=== PATIENT | male | born 1935 | race Caucasian/White ===

== ENCOUNTER → 2016-05-22 | Outpatient (CLI) | payer MEDICARE ==
[~2016-05-22] MED LIST: ASPIRIN BUFFER325 M2 PO; ASPIRIN EC81 M1 PO; ATENOLOL25 MG PO; BENIFIBER; CALCIUM 500 +1 EAC2 PO; CALCIUM 600 +1 EA12 PO; CLOPIDOGREL75 MG PO; ELIQUIS5 MG PO; FLOMAX0.4 M1 PO; HYDROCODON-ACE1 EAC7 PO; HYDROCODON-ACE1 EAC9 PO; IMMODIUM1 MG/5 M1; KETOCONAZOLE120 ML TOP; LACTAID9000 UNIT; LEVOTHYROXINE75 MC1 PO; LEVOTHYROXINE75 MCG PO; MULTI VITAMIN1 EACH; NITROFURANTOIN100 M3 PO; OMEPRAZOLE20 M2 PO; OMNICEF300 M1 PO; PERSANTINE50 MG PO; PHENERGAN12.5 MG; PLAVIX300 MG PO; VITAMIN B-121000 MCG PO; VITAMIN B12-FO1 EACH PO
--- NOTE | ~2016-05-22 | CR58 ---
[facility] A Service of [facility] & [facility] RADIOLOGY TEXT RESULTS PATIENT: MARTHA HARRISON LOCATION: [facility] : 33 UNIT #: [id number] AGE: [address]: Joey Benavides MD SEX: M ORDER DR: [id number] [facility] [address] [place], [place] [address] [id number] O MR#: [id number] Acc #: [id number] NAME: MARTHA HARRISON : 1935 SEX: M STUDY DATE/TIME: 05/22/2016 13:05 UNIT: [facility] ROOM: STUDY DESCRIPTION: CR Cervical Spine 2 or 3 Views Attending Physician: Joey Benavides M.D. Ordering Physician: Joey Benavides M.D. Primary Care Physician: Benjamin Tierney M.D. MEDICAL IMAGING REPORT This report is preliminary unless electronic signature is present EXAM Cervical spine, total of 5 views. DATE OF EXAM 05/22/2016 HISTORY Positive bone scan. History of prostate cancer. FINDINGS AP, lateral, open-mouth, swimmer's and angled odontoid views are submitted. Cervical alignment is normal. There is osteopenia. The patient has multilevel facet disease. There is marginal spur formation at C5-6 and C6-7. No lytic or blastic lesions are seen. CONCLUSION Advanced cervical disc disease and facet disease. No lytic or blastic lesions identified. Findings on bone scan most likely reflect degenerative changes in the spine, rather than a neoplastic process. Dictated by... Venancio Finn M.D. THIS IS AN ELECTRONICALLY VERIFIED REPORT Venancio Finn M.D. at 05/26/2016 2:45 PM IRASEMA/arya TD: 05/22/2016 19:23 JOB #: [id number] MEDICAL IMAGING REPORT Page 1 of 1 COPY
--- NOTE | ~2016-05-22 | CT55 ---
[facility] A Service of [facility] RADIOLOGY TEXT RESULTS PATIENT: MARTHA HARRISON LOCATION: [facility] : 33 UNIT #: [id number] AGE: [address]: Joey Benavides MD SEX: M ORDER DR: [id number] [facility] [address] [place], [place] [address] [id number] O MR#: [id number] Acc #: [id number] NAME: MARTHA HARRISON : 1935 SEX: M STUDY DATE/TIME: 05/22/2016 9:21 UNIT: [facility] ROOM: STUDY DESCRIPTION: CT Chest W Con Attending Physician: Joey Benavides M.D. Ordering Physician: Joey Benavides M.D. Primary Care Physician: Benjamin Tierney M.D. MEDICAL IMAGING REPORT This report is preliminary unless electronic signature is present EXAM CT of the chest with contrast INDICATION 81-year-old male with history of prostate cancer. Observation for metastatic disease. TECHNIQUE CT scan of the chest was performed following the administration of IV contrast. Coronal, sagittal reformatted images were obtained. This CT examination was performed with one or more of the following radiation dose reduction techniques: automatic exposure control, adjustment of mA and/or kV according to patient size, and iterative reconstruction. COMPARISON CT angiogram of the abdomen and pelvis from 03/05/[address] of the chest from 11/13/2011. FINDINGS There is some minimal emphysema. There is no evidence of suspicious pulmonary nodule. Stable aortic aneurysm. No pleural effusion or lymphadenopathy. Coronary artery calcification. Limited imaging of the upper abdomen demonstrates a partially imaged aortic stent graft. A biliary stent is in place. There are renal cysts. The bone windows are unremarkable. IMPRESSION No evidence of metastatic disease to the chest. Dictated by... Enio Borden M.D. [facility] A Service [facility] RADIOLOGY TEXT RESULTS PATIENT: MARTHA HARRISON LOCATION: [facility] : 33 UNIT #: [id number] AGE: [address]: Joey Benavides MD SEX: M ORDER DR: THIS IS AN ELECTRONICALLY VERIFIED REPORT Enio Borden M.D. at 05/23/2016 9:02 AM Noe TD: 05/22/2016 12:04 JOB #: [id number] MEDICAL IMAGING REPORT Page 1 of 1 COPY
--- NOTE | ~2016-05-22 | CR100 ---
[facility] A Service of [facility] & [facility] RADIOLOGY TEXT RESULTS PATIENT: MARTHA HARRISON LOCATION: [facility] : 33 UNIT #: [id number] AGE: [address]: Joey Benavides MD SEX: M ORDER DR: [id number] [facility] [address] [place], [place] [address] [id number] O MR#: [id number] Acc #: [id number] NAME: MARTHA HARRISON : 1935 SEX: M STUDY DATE/TIME: 05/22/2016 13:09 UNIT: [facility] ROOM: STUDY DESCRIPTION: CR Facial Bones < 3 Views Attending Physician: Joey Benavides M.D. Ordering Physician: Joey Benavides M.D. Primary Care Physician: Benjamin Tierney M.D. MEDICAL IMAGING REPORT This report is preliminary unless electronic signature is present EXAM Facial bone series total of 5 views HISTORY Positive bone scan FINDINGS A total of 5 views of the facial bones are obtained. Bony elements appear intact. No fractures, lytic or blastic lesions are seen. CONCLUSION Negative facial bone series. No radiographic correlates are identified when compared with the recent bone scan. Dictated by... Venancio Finn M.D. THIS IS AN ELECTRONICALLY VERIFIED REPORT Venancio Finn M.D. at 05/26/2016 2:45 PM TACHOK/grant TD: 05/22/2016 19:06 JOB #: [id number] MEDICAL IMAGING REPORT Page 1 of 1 COPY
--- NOTE | ~2016-05-22 | NM8 ---
[facility] A Service of [facility] RADIOLOGY TEXT RESULTS PATIENT: MARTHA HARRISON LOCATION: [facility] : 33 UNIT #: [id number] AGE: [address]: Joey Benavides MD SEX: M ORDER DR: [id number] [facility] [address] [place], [place] [address] [id number] O MR#: [id number] Acc #: [id number] NAME: MARTHA HARRISON : 1935 SEX: M STUDY DATE/TIME: 05/22/2016 11:39 UNIT: [facility] ROOM: STUDY DESCRIPTION: MA Bone or Joint Whole Body Attending Physician: Joey Benavides M.D. Ordering Physician: Joey Benavides M.D. Primary Care Physician: Benjamin Tierney M.D. MEDICAL IMAGING REPORT This report is preliminary unless electronic signature is present EXAM Whole-body bone scan. HISTORY 81-year-old male history of prostate cancer with increasing PSA. Patient diagnosed 4-5 years ago. Right above-knee amputation 2012. COMPARISON Whole-body bone scan 05/11/2015, CT chest 05/22/2016 and cervical spine 05/22/2016. FINDINGS Whole-body and selected spot images were performed of the axial and appendicular skeleton following the intravenous administration of 27.9 mCi technetium 99m MDP. Examination demonstrates degenerative uptake within the cervical spine. On the posterior acquisition there is marked activity near the cervical thoracic junction. I suspect this is artifactually increased due to overlapping of the osseous structures due to the patient's severe kyphosis. This was also demonstrated on the patient's recent chest CT. No abnormal uptake is identified to suggest osseous metastatic disease. There is mild increased uptake of the distal stump of the patient's right above-knee amputation but not significantly changed from prior studies. Bilateral renal activity noted. Normal bladder activity. Apparent urinary contamination noted over the groin region. IMPRESSION No bone scan findings to suggest osseous metastatic disease. Increased uptake near the cervical thoracic junction seen on the posterior whole-body acquisitions is felt to be artifactually increase due to overlapping of osseous structures due to patient's underlying kyphosis. Dictated by... Leatha Borden M.D. [facility] A Service of [facility] RADIOLOGY TEXT RESULTS PATIENT: MARTHA HARRISON LOCATION: [facility] #: [id number] : 33 UNIT #: [id number] AGE: [address]: Joey Benavides MD SEX: M ORDER DR: THIS IS AN ELECTRONICALLY VERIFIED REPORT Leatha Borden M.D. at 05/23/2016 2:39 PM Maya TD: 05/23/2016 06:55 JOB #: [id number] MEDICAL IMAGING REPORT Page 1 of 1 COPY
[2016-05-22 09:35] LABS: POC - CREATININE 0.89 mg/dL (0.64-1.27); POC - GFR >60.0 mL/min (>60)
== END | disposition home or self-care (01) ==
LOC: CNUC 08:10
PROVIDERS: Urology
DX: C61 Malignant neoplasm of prostate (principal); M50.80 Other cervical disc disorders, unspecified cervical region
CPT/HCPCS: 70140; 71260; 72040; 78306; 82565; A9503; Q9967

== ENCOUNTER 2016-06-25 21:48 | Observation (INO) | payer MEDICARE ==
--- NOTE | ~2016-06-25 | CO ---
Unit #: [id number] #: [id number] Patient: MARTHA HARRISON [id number] [facility]. [place], [place] [address] [id number] I MR#: [id number] NAME: MARTHA HARRISON ROOM: 241 Age: 81 Sex: M Admission Date: 06/26/2016 : 1935 Attending Physician: James Staley M.D. Primary Care Physician: Benjamin Tierney M.D. Consultation Date: 06/26/2016 CONSULTATION REPORT REASON FOR CONSULTATION Medical management. HISTORY OF PRESENT ILLNESS The patient is an 81-year-old male with a past medical history of coronary artery disease, diverticular disease, hypothyroidism, irritable bowel, infrarenal abdominal aortic aneurysm, aortic arch aneurysm, peripheral arterial disease, dementia, common bile duct stone, diabetes, prostate cancer, who was admitted by Dr. Staley for urinary retention. The patient was seen at [facility] yesterday evening. He had apparently voided earlier in the day but then was unable to void. In the afternoon he was complaining of abdominal pain. A Bernal catheter was unable to be placed. He was admitted by urology. He underwent cystoscopy this morning with placement of Bernal catheter. Hips was consulted for medical management. At the time of my evaluation, the patient has no complaints. He has a Bernal catheter in place. He denies any fever. He has had occasional, nonproductive cough. He denies any chest pain. No vomiting. He does have intermittent loose stool, but is not a new problem. PAST MEDICAL HISTORY 1. Admission to [facility] 11/23/2014 through 11/29/2014 for acute kidney injury secondary to bladder outlet obstruction. He also had symptomatic choledocholithiasis and underwent ERCP. With stone extraction and biliary stent placement. 2. Diabetes, diet controlled. 3. Coronary artery disease. 4. Infrarenal abdominal aortic aneurysm followed by Dr. Johnson. 5. Aortic arch aneurysm, again followed by Dr. Johnson. 6. Peripheral arterial disease, status post bilateral iliac stent placement and right ubaur-tfd-wzqg amputation. 7. Vascular dementia. 8. Diverticular disease. 9. Hypothyroidism. 10. Hypertension. 11. Hyperlipidemia. 12. Irritable bowel syndrome. 13. Sick sinus syndrome. 14. Atrial fibrillation not on chronic anticoagulation. 15. Per cardiology consultation note, the patient had a 2D echo 11/14/2011 at [facility] that showed an ejection fraction of 40% to 45% with impaired left ventricular relaxation. PAST SURGICAL HISTORY Unit #: [id number] #: [id number] Patient: MARTHA HARRISON 1. Bilateral iliac stents. 2. Right ynium-mhz-uvan amputation. 3. Colon surgery for diverticulitis. 4. Appendectomy. 5. Transurethral resection of prostate. 6. Appendectomy. SOCIAL HISTORY The patient is a former smoker. There is no alcohol use. He typically uses a wheelchair. FAMILY HISTORY Notable for his mother living to the age of 97. Dad in his 60s of a myocardial infarction. ALLERGIES No known allergies. HOME MEDICATIONS Plavix 75 mg daily; levothyroxine 75 mcg daily. REVIEW OF SYSTEMS A complete review of systems is negative except as indicated in the HPI. The patient has been losing weight ever since he had his lower extremity amputation. Also per Reqlut review, the patient underwent ERCP with stent exchange on 03/16/2015. Per Dr. Becker's note, he was supposed to follow up in 8-10 weeks. It does not appear that the patient has followed up and the stent is still in place. PHYSICAL EXAMINATION VITAL SIGNS: Temperature is 98.2, pulse 100, respirations 20, blood pressure 120/74. GENERAL: The patient is a very pleasant, male who is awake and alert in no acute distress. HEENT: Head is atraumatic. Mucous membranes are moist. NECK: Supple. Trachea is midline. CARDIOVASCULAR: Regular rate and rhythm. LUNGS: Clear to auscultation bilaterally with no increased work of breathing. ABDOMEN: Soft, nontender with bowel sounds present in all four quadrants. EXTREMITIES: The patient has a prior right kzsiy-fhg-dgtd amputation. There is no pedal edema involving the left lower extremity. NEUROLOGIC: The patient is awake and alert. He follows commands. PSYCH: Mood and affect are normal. The patient is cooperative. SKIN: Skin of examined areas is warm and dry. DIAGNOSTIC TESTS Complete blood count is essentially normal. Urinalysis notable for 3+ leukocyte esterase, 2+ protein, 3+ blood with enumerable red blood cells, enumerable white blood cells, 1+ bacteria. Basic metabolic panel notable for bicarb of 21, glucose 132, INR is 1.1. ASSESSMENT The patient is an 81-year-old male with: 1. Urinary retention. The patient was admitted by urology. A Bernal catheter is currently in place. 2. Urinary infection. The patient is on Rocephin. 3. Hypertension. Unit #: [id number] #: [id number] Patient: MARTHA HARRISON 4. Hyperlipidemia. 5. Coronary artery disease. 6. Diverticular disease. 7. Hypothyroidism. 8. Irritable bowel syndrome. 9. Infrarenal abdominal aortic aneurysm and aortic arch aneurysm, followed by Dr. Johnson. 10. Peripheral arterial disease, status post lower extremity stenting and amputation. 11. Vascular dementia. 12. History of common bile duct stone. The patient underwent stent exchange in 03/2015. I spoke with Dr. Becker via telephone regarding the patient being lost to follow up. He will see him as an outpatient and provide him with an appointment while he is in the hospital. 13. Diabetes, not on any medication, currently diet controlled. 14. History of prostate cancer. 15. Weight loss. 16. Former smoker. PLANS 1. Regarding diabetes, I have ordered a hemoglobin A1c, as well as low dose sliding scale insulin with Accu-Cheks. 2. Regarding hypothyroidism. I have ordered a TSH. 3. Regarding history of common bile duct stone and stent placement and I have spoken with Dr. Becker. Thank you very much for the consultation. We will follow the patient along closely with you. Dictated by... Tamica Andino M.D. BRAULIO/anita TD: 06/26/2016 12:48 JOB #: [id number] CONSULTATION REPORT Page 1 of 1 X Tamica Andino MD X CONSULTATION REPORT
--- NOTE | ~2016-06-25 | DS ---
Unit #: [id number] #: [id number] Patient: MARTHA HARRISON [id number] [address] [address] [id number] I MR#: [id number] NAME: MARTHA HARRISON ROOM: 241 Age: 81 Sex: M Admission Date: 06/26/2016 : 1935 Discharge Date: 06/27/2016 Attending Physician: James Staley M.D. Primary Care Physician: Benjamin Tierney M.D. DISCHARGE SUMMARY DIAGNOSES 1. Urinary retention. 2. Urethral stricture. HISTORY OF PRESENT ILLNESS Mr. Harrison is an 81-year-old gentleman, normally sees our partner, Dr. Parnell. He was diagnosed with prostate cancer. Dr. Flaherty placed a Bernal catheter under cystoscopy after attempts at placing the catheter were unsuccessful. Patient also sees Dr. Benavides for his advanced prostate cancer. PAST MEDICAL HISTORY 1. Diabetes. 2. Prostate cancer. 3. Peripheral vascular disease. 4. Hypertension. 5. Coronary artery disease. 6. Vascular stents. 7. Lower extremity amputation. 8. Pacemaker. 9. TUNA procedure. 10. TURP. 11. Appendectomy. 12. Colostomy reversal. MEDICATIONS 1. Synthroid. 2. Plavix. ALLERGIES No known drug allergies. FAMILY HISTORY Negative for prostate cancer. SOCIAL HISTORY He quit smoking in 2011. REVIEW OF SYSTEMS Negative for 10 points, except for a little bit of irritation with the catheter. PHYSICAL EXAMINATION VITAL SIGNS: He is afebrile. Vital signs stable. Unit #: [id number] #: [id number] Patient: MARTHA HARRISON ABDOMEN: Soft with no rebound, no guarding. Bernal catheter in place. GENITALIA: Normal external genitalia. Urine is clear. ASSESSMENT AND PLAN Urinary retention, urethral stricture: It required dilation with S dilators. The patient will be discharged home with a catheter. Return to see Dr. Parnell in one to two weeks. Dictated by... Kevin Correia M.D. JEYSON/vera TD: 06/27/2016 10:45 JOB #: [id number] DISCHARGE SUMMARY Page 1 of 1 X Kevin Correia MD DISCHARGE SUMMARY
--- NOTE | ~2016-06-25 | OR ---
Unit #: [id number] #: [id number] Patient: MARTHA HARRISON [id number] [address] [place], [place] [address] [id number] Angelo MR#: [id number] NAME: MARTHA HARRISON ROOM: 241 Date of Procedure: 06/26/2016 Admission Date: 06/26/2016 Surgeon: Dangelo Flaherty M.D. : 1935 Attending Physician: James Staley M.D. Primary Care Physician: Benjamin Tierney M.D. OPERATIVE REPORT PREOPERATIVE DIAGNOSIS Urinary retention, inability to place Bernal catheter. POSTOPERATIVE DIAGNOSIS Urinary retention, inability to place Bernal catheter. PROCEDURE PERFORMED Flexible cystourethroscopy with urethral dilation and catheter placement over a guidewire. ANESTHESIA Local. INDICATIONS FOR PROCEDURE This is an 81-year-old man, developed sudden acute urinary retention. He has a history of TUR of prostate, and after the fact he was noted to have a recurrent prostate cancer, status post TUR, he has not been successfully catheterized despite several attempts including my own. DESCRIPTION OF PROCEDURE The patient was taken to the cystoscopy suite in his bed and without transfer. Prep and drape were performed. Xylocaine jelly was instilled and a flexible cystoscope easily placed down a normal anterior urethra encountering a severe narrowing, which appeared just proximal to the verumontanum or in its vicinity. A flexible cystoscope would not pass through this. A Sensor guidewire was passed through the cystoscope and I used S dilators up through size 20-Cambodian. After this, I passed the cystoscope one more time over the guidewire into the bladder. The bladder was examined other than white debris in its floor and 1+ trabeculation appeared normal. Retroflexion viewing was not very informative. Pullback through the adequate channel showed a persistent focal area of narrowing. An 18-Cambodian Councill catheter was placed over the guidewire and the patient was much relief following the procedure. I suspect repeat TUR may be appropriate still for this patient despite increased risk of incontinence. Likely best that he return with catheter to his primary urologist to discuss further management. Dictated by... Dangelo Flaherty M.D. Unit #: [id number] #: [id number] Patient: MARTHA HARRISON/modl TD: 06/26/2016 23:43 JOB #: [id number] Dangelo Parnell M.D. OPERATIVE REPORT Page 1 of 1 X Dangelo Flaherty MD PROCEDURE OPERATIVE NOTE
--- NOTE | ~2016-06-25 | HP ---
Unit #: [id number] #: [id number] Patient: MARTHA HARRISON [id number] [address] [place], [place] [address] [id number] I MR#: [id number] NAME: MARTHA HARRISON ROOM: 241 Age: 81 Sex: M Admission Date: 06/26/2016 : 1935 Attending Physician: James Staley M.D. Primary Care Physician: Benjamin Tierney M.D. HISTORY AND PHYSICAL CHIEF COMPLAINT Urinary retention. HISTORY OF PRESENT ILLNESS This 81-year-old man was admitted through the emergency department after presenting with a 12-hour complaint of inability to urinate. His history is somewhat limited due to a stroke, but he presented to [facility] in October 2014 with urinary retention and had a catheter placed for bilateral hydronephrosis and a distended bladder. He had had a TUNA procedure in the past by my partner, Dr. Dangelo Parnell, and office records show that he subsequently underwent a TUR of prostate in 2015. The pathology revealed extensive [place] 5 plus 4 equals 9 prostate cancer. Initial bone and CT scans were negative. He proceeded to androgen deprivation therapy and is being followed by our mutual partner, Dr. Joey Benavides, in this regard. Repeat bone and CT scans from May 22, 2016, were also negative, but his PSA on May 07, 2016, was 1.61 with a doubling time of under three months. Patient denies absolutely any difficulty with voiding complaints prior to yesterday. He was moderately uncomfortable from bladder distention this morning. PAST MEDICAL HISTORY 1. Diabetes. 2. Hypertension. 3. Peripheral vascular disease. 4. Coronary artery disease. PAST SURGICAL HISTORY 1. Multiple vascular stents. 2. Right lower extremity amputation. 3. Pacemaker. 4. Transurethral needle ablation procedure. 5. Transurethral resection of the prostate. 6. Appendectomy. 7. Colostomy reversal. ADMISSION MEDICATIONS 1. Plavix. 2. Levothyroxine. ALLERGIES None known. Unit #: [id number] #: [id number] Patient: MARTHA HARRISON FAMILY HISTORY Father heart disease. Negative for prostate cancer. SOCIAL HISTORY Quit smoking in 2011. REVIEW OF SYSTEMS No decreased appetite or bone pain. No bowel complaints. Positive only for bladder pain and distention on admission. PHYSICAL EXAMINATION GENERAL: Patient is pleasant, alert, and in moderate distress. HEENT: Unremarkable. LUNGS: Clear. CARDIAC: Rate and rhythm regular. ABDOMEN: Inferiorly distended and tender. Phallus normal, circumcised. Testes atrophic, descended. Digital not performed. EXTREMITIES: Right above knee amputation. IMPRESSION 1. Urinary retention. 2. History of recurrent prostate cancer and transurethral resection of the prostate albeit not known at the time of this admission. TREATMENT I attempted to place an 18 Coude catheter initially at bedside as retention was the only reason patient was transferred in. Three other healthcare professionals had been unable to place a catheter. I also was not successful. PLAN Will remain n.p.o. and schedule flexible cystoscopy under local anesthesia with dilation as needed and catheter placement with the option to proceed to general anesthesia if absolutely indicated. Dictated by Bev Cerrato/blayne TD: 06/26/2016 20:06 JOB #: [id number] HISTORY AND PHYSICAL Page 1 of 1 X Dangelo Flaherty MD X HISTORY AND PHYSICAL
--- NOTE | ~2016-06-25 | A ---
[facility] DATE: 06/26/16 Patient: MARTHA HARRISON Physician: DARIN Address: [address] [facility] Room/Bed: [address] [place] [address], Zip: [place] [address] Admit Date: 06/26/16 Date of : [birth year] Height: 5 10 Weight: 170 77.11 NUTRITIONAL ASSESSMENT: REASON: 3 NUTRITION RISK PT RE: WEIGHT LOSS PT IS 81 Y.O. MALE ADMITTED FOR URINARY RETENTION PMH: PAD S/P (R) AKA IN 2012, T2DM, HTN, HLD, IBS, PACEMAKER Anthropometrics: 5'10", WT: 120# (BEDSIDE) (55 KG), BMI: 17.2, 72%IBW -169# WEIGHT IN [facility] AT ADMIT? PT NOTES CURRENT WEIGHT IS LESS THAN ~120#? Labs: GLU: 132 Meds: LEVOTHROID I/O & Bowel function: -/2 Skin Integrity: DRY SKIN NOTED ALL OVER BODY Estimated Nutrition Needs: INCREASED NUTRIENT NEEDS 2' PT UNDERWEIGHT, CURRENT CONDITION, WEIGHT LOSS NOTED Assessment: CHART REVIEWED AND EVENTS NOTED. PT SEEN FOR WEIGHT LOSS. PT GROGGY AT TIME OF VISIT REPORTING FAIR/GOOD PO INTAKE AND APPETITE PRIOR TO ADMIT, NOTING EATING 3 MEALS DAILY AT HOME. PT DENIES ANY CHEWING OR SWALLOWING DIFFICULTIES. PT REPORTS UBW IS ~175-180#, NOTING LOSING WEIGHT SINCE 2012 2' (R) AKA. THIS RD ENCOURAGED ADEQUATE KCAL AND PROTEIN INTAKE + SUPPLEMENT INTAKE, PT AGREED TO GLUCERNA SHAKES BID (PT REFUSED ALL OTHER SUPPLEMENTS OFFERED HERE AT [facility]). PT REPORTED NO DIET QUESTIONS AT THIS TIME. RD TO FOLLOW. Dx: UNINTENTIONAL WEIGHT LOSS R/T PMH AEB BMI OF 17.2, 72%IBW, WEIGHT LOSS NOTED SINCE 2012. Intervention: 1. REGULAR DIET 2. GLUCERNA SHAKES BID Monitoring, Evaluation and Goals: 1. ORAL INTAKE; CONSUME MEALS AND SUPPS W/NO C/O N/V/D (PO>50%) 2. WEIGHTS; PROMOTE GRADUAL WEIGHT GAIN; PREVENT FURTHER WEIGHT LOSS MONITOR: -PO INTAKE/APPETITE -WEIGHTS [facility] DATE: 06/26/16 Patient: MARTHA HARRISON Physician: DARIN Address: [address] [place] [address] Room/Bed: [address] [place] [address], Zip: [place] [address] Admit Date: 06/26/16 Date of : [birth year] Height: 5 10 Weight: 170 77.11 -SUPPLEMENT INTAKE Recommendations: 1. ORDER JAZZ GLUCERNA SHAKES BID W/MEALS 2. APPRECIATE FAMILY AND STAFF TO ENCOURAGE PO AND SUPPLEMENT INTAKE 3. CONSIDER ADDING MVI W/MINERAL DAILY TO PT'S CURRENT MEDICATION REGIMEN 2' ADVANCED AGE, PMH RD WILL F/U PER PROTOCOL PT IS MILDLY COMPROMISED Respectfully, KEMI PETERS MS, RD, LD [employer] [facility] Nutrition[facility] cc: client file
[~2016-06-25 21:48] MED LIST changes: -ASPIRIN BUFFER325 M2 PO; -CALCIUM 500 +1 EAC2 PO; -CALCIUM 600 +1 EA12 PO; -CLOPIDOGREL75 MG PO; -ELIQUIS5 MG PO; -HYDROCODON-ACE1 EAC7 PO; -HYDROCODON-ACE1 EAC9 PO; -KETOCONAZOLE120 ML TOP; -LEVOTHYROXINE75 MCG PO; -OMNICEF300 M1 PO; -VITAMIN B12-FO1 EACH PO
[2016-06-26 00:45] LABS: BASOPHIL% 0.4 % (0-2.5); EOSINOPHIL% 0.3 % (0.0-7.0); HEMATOCRIT 44.1 % (38.0-50.0); HEMOGLOBIN 14.2 gm/dL (13.0-16.0); LYMPHOCYTE# 0.8 X10e3 (1.0-3.5); LYMPHOCYTE% 7.9 % (17.0-45.0); MEAN CELL VOLUME 86.9 FL (83-96); MEAN CORPUSCULAR HGB CONC 32.2 g/dL (30-36); MEAN PLATELET VOLUME 8.4 FL (6.5-11.5); MONOCYTE# 0.6 X10e3 (0-1.0); MONOCYTE% 6.1 % (3.0-12.0); NEUTROPHIL# 8.3 X10e3 (1.5-7.1); NEUTROPHIL% 85.3 % (40-75); PLATELET COUNT 247 X10e3 (140-420); RED BLOOD COUNT 5.07 X10e (3.90-5.60); RED CELL DISTRIBUTION WIDTH 15.4 % (11.0-15.5); WHITE BLOOD COUNT 9.8 X10e3 (4.0-10.5)
[2016-06-26 00:46] LABS: URINE APPEARANCE SL CLOUDY; URINE BLOOD 3+ (NEG); URINE COLOR RED; URINE GLUCOSE NEG (NORM); URINE KETONE NEG (NEG); URINE LEUKOCYTE ESTERASE 3+ (NEG); URINE NITRATE NEG (NEG); URINE PROTEIN 2+ (NEG); URINE UROBILINOGEN 0.2 MG/DL (NORM)
[2016-06-26 00:47] LABS: DIFF IND NO
[2016-06-26 00:50] LABS: INR 1.1; PROTHROMBIN TIME (PATIENT) 12.2 SECONDS (9.5-12.4)
[2016-06-26 00:53] LABS: MICRO INDICATED? YES; URINE BILIRUBIN NEG (NEG); URINE SOURCE CATH
[2016-06-26 00:55] LABS: URINE RBC INNUM /[HPF] (0-2)
[2016-06-26 00:56] LABS: CULTURE INDICATED? YES; URINE BACTERIA 1+ (NEG); URINE MUCUS PRESENT; URINE SQUAMOUS EPITHELIAL CELL OCCAS /[HPF]; URINE TRANSITIONAL EPI CELLS FEW /[HPF]; URINE WBC INNUM /[HPF] (0-5)
[2016-06-26 00:58] LABS: BUN/CREATININE RATIO 26.25; CALCIUM SERUM 8.7 mg/dL (8.4-10.2); CREATININE SERUM 0.8 mg/dL (0.6-1.4); GLOM FILT RATE Estimated 82.6 mL/min (>60); PARTIAL THROMBOPLASTIN TIME 29.9 SECONDS (25.6-38.1); POTASSIUM 4.2 mmol/L (3.5-5.1)
[2016-06-26] MEDS ORDERED: CLOPIDOGREL75 MG PO (05:45)
[2016-06-26] MEDS ORDERED: LEVOTHYROXINE75 MCG PO (05:46)
[2016-06-27 05:36] LABS: HEMATOCRIT 35.5 % (38.0-50.0); MEAN CELL VOLUME 86.8 FL (83-96); MEAN CORPUSCULAR HEMOGLOBIN 27.9 PG (28-34); MEAN CORPUSCULAR HGB CONC 32.1 g/dL (30-36); MEAN PLATELET VOLUME 8.3 FL (6.5-11.5); RED BLOOD COUNT 4.09 X10e (3.90-5.60); RED CELL DISTRIBUTION WIDTH 15.5 % (11.0-15.5); WHITE BLOOD COUNT 6.1 X10e3 (4.0-10.5)
[2016-06-27 05:40] LABS: HEMOGLOBIN 11.4 gm/dL (13.0-16.0)
[2016-06-27 07:11] LABS: ALBUMIN SERUM 2.9 g/dL (3.5-5.0); BILIRUBIN,TOTAL 0.7 mg/dL (0.2-2.0); BUN/CREATININE RATIO 26.25; CALCIUM SERUM 7.9 mg/dL (8.4-10.2); CREATININE SERUM 0.8 mg/dL (0.6-1.4); GLOM FILT RATE Estimated 82.6 mL/min (>60); PROTEIN TOTAL SERUM 5.3 g/dL (6.0-8.3)
[2016-06-27] MEDS ORDERED: OMNICEF300 M1 PO (11:08)
[2016-07-10] MEDS ORDERED: CALCIUM 500 +1 EAC2 PO (13:57)
== END 2016-06-27 12:04 | disposition home or self-care (01) ==
LOC: SED 21:48 → SEDOF 06-26 01:34 → C2A 06-26 05:31
PROVIDERS: Emergency Medicine; Urology
DX: R33.9 Retention of urine, unspecified (principal); N35.9 Urethral stricture, unspecified; Z85.46 Personal history of malignant neoplasm of prostate; E11.9 Type 2 diabetes mellitus without complications; I73.9 Peripheral vascular disease, unspecified; I10 Essential (primary) hypertension; I25.10 Atherosclerotic heart disease of native coronary artery without angina pectoris; Z89.611 Acquired absence of right leg above knee; Z82.49 Family history of ischemic heart disease and other diseases of the circulatory system; Z87.891 Personal history of nicotine dependence; Z95.0 Presence of cardiac pacemaker; Z79.02 Long term (current) use of antithrombotics/antiplatelets; Z95.820 Peripheral vascular angioplasty status with implants and grafts
CPT/HCPCS: 80048; 80053; 81003; 82947; 83036; 84443; 85025; 85027; 85610; 85730; 87086; 87088; 87186; 96374; 96375; 96376; 99285; G0378; J0696; J2270; J2405

== ENCOUNTER → 2016-07-11 | Day surgery (SDC) | payer MEDICARE ==
[~2016-07-11] MED LIST changes: +ASPIRIN BUFFER325 M2 PO; +CALCIUM 500 +1 EAC2 PO; +CALCIUM 600 +1 EA12 PO; +CLOPIDOGREL75 MG PO; +ELIQUIS5 MG PO; +HYDROCODON-ACE1 EAC7 PO; +HYDROCODON-ACE1 EAC9 PO; +KETOCONAZOLE120 ML TOP; +LEVOTHYROXINE75 MCG PO; +OMNICEF300 M1 PO; +VITAMIN B12-FO1 EACH PO
--- NOTE | ~2016-07-11 | OR ---
Unit #: [id number] #: [id number] Patient: MARTHA HARRISON [id number] [address] [place], [place] [address] [id number] O MR#: [id number] NAME: MARTHA HARRISON ROOM: Date of Procedure: 07/11/2016 Admission Date: 07/11/2016 Surgeon: Moy Becker M.D. : 1935 Attending Physician: Moy Becker M.D. Referring Physician: Moy Becker M.D. Primary Care Physician: Benjamin Tierney M.D. OPERATIVE REPORT PRIMARY CARE PHYSICIAN Benjamin Tierney M.D. PREOPERATIVE DIAGNOSES The patient has common bile duct stones and indwelling biliary stent, which unfortunately has been there for more than a year as the patient never seemingly followed up for stent removal. He is therefore come for clearance of common bile duct and stent removal. PROCEDURES PERFORMED 1. Endoscopic retrograde cholangiopancreatography and stent removal. 2. Endoscopic retrograde cholangiopancreatography and stone extraction. POSTOPERATIVE DIAGNOSES After removal of the biliary stent, cholangiogram was obtained. The patient was noted to have multiple common bile duct stones. The stomach was U shaped with the large hiatus hernia and maintaining a consistent position was quite difficult. The patient also had continued taking Plavix and as a result, it was not possible to extend sphincterotomy and use lithotripsy. The procedure was therefore be repeated in few weeks after cessation of Plavix. SEDATION USED MAC. DESCRIPTION OF PROCEDURE Following detailed explanation of potential risks and complications of an ERCP, namely perforation, bleeding, and complications related to sedation and pancreatitis, the patient was brought to GI lab and laid in the left semiprone position. A lateral viewing duodenoscope was passed through the oral cavity into the esophagus and advanced into the stomach. Pylorus was intubated in the usual fashion. The scope was advanced in deep descending duodenum. Upon shortening the scope, major ampulla and papillary area was visualized en face. Previously placed biliary stent was in place and appeared somewhat mummified. The stent was removed using polypectomy snare and delivered outside. Through the previous sphincterotomy site, a guidewire was advanced using a sphincterotome. Contrast cholangiogram was obtained. The patient was noted to have some multiple filling defects in the distal common bile duct. At least 2 distinct stones were seen. The sphincterotomy size seemed appropriate; however, there was limitation in terms of extension, also there is impossible due to lithotripter. Therefore after, balloon sweep the duct multiple times. It was felt that Unit #: [id number] #: [id number] Patient: MARTHA HARRISON it would be best to postpone procedure and repeated with cessation of Plavix for 5 days and repeat the procedure near future with lithotripter to capture and remove the stones. The scope and accessories were then withdrawn. The patient returned to the recovery area. He tolerated the procedure without any postprocedure complications. Dictated by... Bev Sánchez/erika TD: 07/12/2016 05:45 JOB #: [id number] OPERATIVE REPORT Page 1 of 1 X Moy Becker MD X PROCEDURE OPERATIVE NOTE
--- NOTE | ~2016-07-11 | EKG ---
PATIENT: MARTHA HARRISON UNIT #: [id number] Ventricular Rate: 102 BPM Atrial Rate: 102 BPM P-R Interval: 210 ms QRS Duration: 172 ms Q-T Interval: 454 ms QTC Calculation(Bezet): 591 ms Calculated R [place]: -80 degrees Calculated T [place]: 90 degrees Diagnosis Line: AV dual-paced rhythm with prolonged AV conduction Diagnosis Line: Abnormal ECG Diagnosis Line: When compared with ECG of 27-NOV-2014 06:46, Diagnosis Line: Previous ECG has undetermined rhythm, needs review Diagnosis Line: Confirmed by IMAN LAMB MD ([id number]) on 07/11/2016 Diagnosis Line: 8:12:39 PM INTERPRETING MD: ADONIS LUND
== END | disposition home or self-care (01) ==
LOC: COPS 14:04
DX: Z46.59 Encounter for fitting and adjustment of other gastrointestinal appliance and device (principal); K80.50 Calculus of bile duct without cholangitis or cholecystitis without obstruction; K44.9 Diaphragmatic hernia without obstruction or gangrene; E11.9 Type 2 diabetes mellitus without complications; E03.9 Hypothyroidism, unspecified; M19.90 Unspecified osteoarthritis, unspecified site; N39.0 Urinary tract infection, site not specified; K21.9 Gastro-esophageal reflux disease without esophagitis; Z86.73 Personal history of transient ischemic attack (TIA), and cerebral infarction without residual deficits; Z85.46 Personal history of malignant neoplasm of prostate; Z87.442 Personal history of urinary calculi; Z87.19 Personal history of other diseases of the digestive system; Z90.49 Acquired absence of other specified parts of digestive tract; Z95.0 Presence of cardiac pacemaker; Z79.02 Long term (current) use of antithrombotics/antiplatelets; Z79.82 Long term (current) use of aspirin; Z79.2 Long term (current) use of antibiotics; Z79.899 Other long term (current) drug therapy
CPT/HCPCS: 74330; 82947; 93005; J1610

== ENCOUNTER → 2016-07-18 | Outpatient (CLI) | payer MEDICARE ==
--- NOTE | ~2016-07-18 | EKG ---
PATIENT: MARTHA HARRISON UNIT #: [id number] Ventricular Rate: 96 BPM Atrial Rate: 96 BPM P-R Interval: 88 ms QRS Duration: 178 ms Q-T Interval: 434 ms QTC Calculation(Bezet): 548 ms Calculated R [place]: -80 degrees Calculated T [place]: 92 degrees Diagnosis Line: AV sequential or dual chamber electronic pacemaker Diagnosis Line: When compared with ECG of 11-JUL-2016 18:59, Diagnosis Line: Vent. rate has decreased BY 6 BPM Diagnosis Line: Confirmed by GEORGE SAN MD ([id number]) on Diagnosis Line: 07/23/2016 8:50:04 AM INTERPRETING MD: EMNA LUND
[2016-07-18 12:53] LABS: BASOPHIL# 0.1 X10e3 (0-0.3); BASOPHIL% 0.9 % (0-2.5); EOSINOPHIL# 0.2 X10e3 (0-0.7); EOSINOPHIL% 3.3 % (0.0-7.0); HEMATOCRIT 41.2 % (38.0-50.0); HEMOGLOBIN 13.4 gm/dL (13.0-16.0); LYMPHOCYTE# 1.3 X10e3 (1.0-3.5); LYMPHOCYTE% 21.4 % (17.0-45.0); MEAN CELL VOLUME 86.4 FL (83-96); MEAN CORPUSCULAR HEMOGLOBIN 28.2 PG (28-34); MEAN CORPUSCULAR HGB CONC 32.6 g/dL (30-36); MONOCYTE# 0.5 X10e3 (0-1.0); MONOCYTE% 9.1 % (3.0-12.0); NEUTROPHIL# 3.9 X10e3 (1.5-7.1); NEUTROPHIL% 65.3 % (40-75); PLATELET COUNT 227 X10e3 (140-420); RED BLOOD COUNT 4.77 X10e (3.90-5.60); RED CELL DISTRIBUTION WIDTH 15.5 % (11.0-15.5); WHITE BLOOD COUNT 5.9 X10e3 (4.0-10.5)
[2016-07-18 12:56] LABS: DIFF IND NO
[2016-07-18 13:22] LABS: BUN/CREATININE RATIO 18.75; CALCIUM SERUM 8.5 mg/dL (8.4-10.2); CREATININE SERUM 0.8 mg/dL (0.6-1.4); GLOM FILT RATE Estimated 82.6 mL/min (>60); POTASSIUM 4.3 mmol/L (3.5-5.1)
== END | disposition home or self-care (01) ==
LOC: SEKG 12:19
PROVIDERS: Chiropractor
DX: N40.1 Benign prostatic hyperplasia with lower urinary tract symptoms (principal); R33.9 Retention of urine, unspecified
CPT/HCPCS: 36415; 80048; 85025

== ENCOUNTER → 2016-09-03 | Outpatient (CLI) | payer MEDICARE ==
[2016-09-03 11:01] LABS: CREATININE SERUM 0.7 mg/dL (0.6-1.4); GLOM FILT RATE Estimated 87.3 mL/min (>60)
== END | disposition home or self-care (01) ==
LOC: SLAB 10:24
PROVIDERS: Surgery Vascular Surgery
DX: Z48.812 Encounter for surgical aftercare following surgery on the circulatory system (principal); Z95.828 Presence of other vascular implants and grafts
CPT/HCPCS: 36415; 82565; 84520

== ENCOUNTER → 2016-09-09 | Outpatient (CLI) | payer MEDICARE ==
--- NOTE | ~2016-09-09 | CT14 ---
[facility] A Service of [facility] RADIOLOGY TEXT RESULTS PATIENT: SUMMER HARRISON JR [facility] : 33 UNIT #: [id number] AGE: [address]: Jeancarlos Johnson MD SEX: M ORDER DR: [id number] [facility] [address] [place], [place] [address] [id number] O MR#: [id number] [facility] #: [id number] NAME: SUMMER HARRISON JR : 1935 SEX: M STUDY DATE/TIME: 09/09/2016 12:42 UNIT: [facility] ROOM: STUDY DESCRIPTION: CT Angio Abdomen and Pelvis Attending Physician: Jeancarlos Johnson M.D. Referring Physician: Jeancarlos Johnson M.D. Ordering Physician: Jeancarlos Johnson M.D. Primary Care Physician: Benjamin Tierney M.D. MEDICAL IMAGING REPORT This report is preliminary unless electronic signature is present EXAM CT angiogram of the abdomen and pelvis. INDICATION Prior aortic aneurysm. Status post EVAR. Routine follow up. TECHNIQUE CT angiogram abdomen and pelvis was performed before and after the administration of IV contrast using multiphase a stent graft protocol. Coronal, sagittal, and 3-D reformatted images were obtained. This CT exam was performed with one or more of the following radiation dose reduction techniques: automatic exposure control, adjustment of mA and/or kV according to patient size, and iterative reconstruction. COMPARISON Comparison is made with 03/05/2016. FINDINGS CT ANGIOGRAM: The patient has had a prior EVAR. The stent graft is patent. There is no evidence for endoleak. Aneurysm sac size is stable measuring roughly 4.7 cm. Stable appearance of the visceral arteries. There is stable mild fusiform dilatation of both common femoral arteries. CT OF THE ABDOMEN: Emphysematous changes in the lung bases. There is some high-attenuation material within the common bile duct, likely representing common bile duct stones. There is a presumed stone in the distal common bile duct measuring about 9-10 mm. There is a presumed stone in the mid common bile duct measuring about 8-9 mm and some layering stones in the proximal common bile duct on image 41. Previously noted common bile duct stent is no longer present. The spleen is unremarkable. The gallbladder is unremarkable. There are multiple renal cysts. The adrenal glands and pancreas are unremarkable. [facility]. [facility] A Service of [facility] RADIOLOGY TEXT RESULTS PATIENT: SUMMER HARRISON JR LOCATION: [facility] : 33 UNIT #: [id number] AGE: [address]: Jeancarlos Johnson MD SEX: M ORDER DR: PELVIS: There is nodular enhancement located at the base of the urinary bladder. Patient has had a prostatectomy and has a history of prostate cancer. There are scattered diverticula within the colon. There is no free fluid. Bone windows demonstrate multiple areas of sclerosis in the pelvis and lumbar spine. These are new compared with the prior study and are most suggestive of sclerotic osseous metastatic disease from prostate cancer. IMPRESSION 1. Abnormal exam. The patient has developed multiple sclerotic lesions within the pelvis and lower lumbar spine, most consistent with metastases and most likely from the patient's known history of prostate cancer. I would suggest correlation with PSA levels and follow up with the patient's oncologist/urologist. 2. There is abnormal nodular enhancement in the base of the urinary bladder. This may reflect bladder cancer or possibly presumed prostate cancer metastases. However, the patient has had a prostatectomy. I would recommend a urology consultation for a cystoscopy. 3. There is no evidence for endoleak. The aneurysm sac size is stable. 4. Multiple presumed stones within the common bile duct as described. Dictated by... Enio Borden M.D. THIS IS AN ELECTRONICALLY VERIFIED REPORT Enio Borden M.D. at 09/11/2016 12:25 PM JAMIE/alisha TD: 09/10/2016 09:50 JOB #: [id number] MEDICAL IMAGING REPORT Page 1 of 1 COPY
== END | disposition home or self-care (01) ==
LOC: CCAT 12:08
DX: I71.4 Abdominal aortic aneurysm, without rupture (principal); M89.9 Disorder of bone, unspecified; N32.89 Other specified disorders of bladder; R93.41 Abnormal radiologic findings on diagnostic imaging of renal pelvis, ureter, or bladder; Z90.79 Acquired absence of other genital organ(s); Z95.828 Presence of other vascular implants and grafts
CPT/HCPCS: 74174; Q9967

== ENCOUNTER 2016-09-20 23:01 | Inpatient (IN) | payer MEDICARE ==
--- NOTE | ~2016-09-20 | DS ---
Unit #: [id number] #: [id number] Patient: SUMMER HARRISON JR [id number] [address] [address] [id number] I MR#: [id number] NAME: SUMMER HARRISON JR ROOM: 218 Age: 81 Sex: M Admission Date: 09/21/2016 : 1935 Discharge Date: 09/23/2016 Attending Physician: Shania Sparks M.D. Primary Care Physician: Benjamin Tierney M.D. DISCHARGE SUMMARY PRIMARY CARE PHYSICIAN Benjamin Tierney M.D. PRINCIPAL DIAGNOSES 1. Acute on chronic low back pain secondary to metastatic prostate cancer. 2. Right upper lobe pulmonary embolism. 3. Right superficial femoral vein deep vein thrombosis. 4. Constipation acute on chronic. 5. Peripheral arterial disease. 6. Coronary artery disease. 7. Diabetes mellitus type 2. 8. Hypertension. 9. Hypothyroidism. 10. Questionable bladder mass. 11. Moderate protein malnutrition. 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 PROCEDURES 1. Chest x-ray on 09/21/2016 with enlargement of the heart. No other acute findings. 2. CT angiogram of the chest on 09/21/2016 with a single right upper lobe pulmonary embolism. Extensive atherosclerotic disease with stable dilatation of thoracic aorta noted. On prior study, there was penetrating ulcer in the descending aorta not noted on current study. Emphysema without any acute findings noted. Coronary artery disease. Scattered sclerotic lesions in the skeleton concerning for metastatic lesions. 3. CT of abdomen and pelvis with contrast on 09/21/2016 with abnormal circumferential wall thickening of the lower rectum just above the anus. This was proximal to a large volume of stool. Status post prostatectomy. Abnormal nodule enhancement in the urinary bladder is noted. Stable aortic aneurysm. Extensive atherosclerotic disease noted. Enhancement of gallbladder wall noted with mild thickening. Widespread osseous metastatic disease noted. 4. Bilateral extremity venous Doppler revealing chronic appearing thrombus in the right mid thigh superficial femoral vein. Left lower extremity normal. 5. Bone scan which was abnormal revealing widely disseminated bone metastases, greatest in the skull, ribs, and femur. CLINICAL HISTORY AND HOSPITAL COURSE Mr. Harrison is a very nice 81-year-old male, who presents to the Unit #: [id number] #: [id number] Patient: SUMMER HARRISON JR emergency department with acute onset of back pain. Workup in the emergency department, probable metastatic lesions from the patient's known prostate cancer. The patient was subsequently admitted. Urology was consulted. Review of records indicates the patient's PSA per Urology notes was 1.65 in 04/2016, however, PSA here was elevated at greater than 65. The patient underwent bone scan revealing widespread metastatic lesions which are responsible for patient's acute low back pain. He has been maintained on Petoskey here and the pain is controlled. I have discussed this case with Dr. Correia who saw the patient today and the plan is for the patient to be discharged home to be seen next week by Dr. Parnell in the office with some adjustment in his medications from Eligard to one of the newer agents. I will note the patient is well aware of the diagnosis as his daughter and his daughter is currently debating whether hospice would be appropriate and I think this would be better discussed with Dr. Parnell in the office to which both the patient and daughter are agreeable. During workup in the emergency department, the patient underwent CT scan with PE protocol revealing a right upper lobe PE. He was maintained on therapeutic Lovenox here. Venous Doppler also revealed DVT of the right lower extremity. I have discussed treatment options with the patient's and his daughter and at this point, we are going to check cost of Eliquis and if affordable, we will change him from Lovenox to Eliquis. I am concerned about Coumadin therapy given his variable oral intake. I suspect the patient's DVT and PE are secondary to underlying malignancy. The patient was also significantly constipated upon presentation, but has had bowel movements and feels better. GI was initially consulted but I think given his underlying diagnoses, no further workup would provide much benefit and at this time, I am going to cancel this. The patient's other chronic condition remained stable. He can be discharged home this afternoon assuming Eliquis is affordable and follow up with Dr. Parnell next week. DISCHARGE CONDITION Stable. DISCHARGE STATUS Discharged to home. DISCHARGE MEDICATIONS Eliquis 5 mg tablets 2 tablets p.o. b.i.d. for 7 days and one tablet p.o. daily after that, a total of 3 months prescription given. Petoskey 5/325 one tablet p.o. q.4 hours p.r.n. for pain number given 35, omeprazole 20 mg daily, calcium 600+ D two tablets daily, levothyroxine 75 mcg p.o. daily, vitamin B12/folic acid 1000 mcg p.o. daily. Please note, I am going to discontinue Plavix given high risk of bleeding in combination with Eliquis and place the patient on aspirin 325 mg p.o. daily in regard to his peripheral arterial disease. DISCHARGE INSTRUCTIONS The patient instructed to follow a constant carb diet if he can so tolerate. He can continue Accu-Cheks as he was doing home previously but they were stable here. He can increase activity as tolerated. Unit #: [id number] #: [id number] Patient: SUMMER HARRISON JR FOLLOWUP The patient will follow up with Dr. Parnell next week and discuss further options regarding treatment of his prostate cancer, but as noted above the patient and particularly his daughter also interested in discussing hospice whether Dr. Hussein feels this is appropriate. My personal opinion, the patient is appropriate, he is agreeable. Time spent on discharge 43 minutes. Dictated by... Shania Sparks M.D. RUBÉN/erika TD: 09/25/2016 06:45 JOB #: [id number] DISCHARGE SUMMARY Page 1 of 1 X Shania Sparks MD X DISCHARGE SUMMARY
--- NOTE | ~2016-09-20 | NM8 ---
[facility] A Service of [facility] RADIOLOGY TEXT RESULTS PATIENT: SUMMER HARRISON JR LOCATION: A 218- : 33 UNIT #: [id number] AGE: [address]: Shania Sparks MD SEX: M ORDER DR: [id number] [place] [id number] [facility]. [place], [place] [address] [id number] I MR#: [id number] Acc #: [id number] NAME: SUMMER HARRISON JR : 1935 SEX: M STUDY DATE/TIME: 09/22/2016 12:38 UNIT: [facility] ROOM: 218 STUDY DESCRIPTION: NM Bone or Joint Whole Body Attending Physician: Shania Sparks M.D. Ordering Physician: Dangelo Flaherty M.D. Primary Care Physician: Benjamin Tierney M.D. MEDICAL IMAGING REPORT This report is preliminary unless electronic signature is present EXAM Whole-body bone scan HISTORY 81-year-old male with elevated PSA complains of low back pain for 4 days. History of prostate cancer. COMPARISON Whole-body bone scan 05/22/2016 FINDINGS Whole-body and selected spot images were performed of the axial appendicular skeleton following the intravenous administration of 31.4 mCi technetium 99m MDP. 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 There are multiple foci of increased uptake within the axial and appendicular skeleton consistent with widely disseminated skeletal metastases. This is most prominent within the right proximal femur, left proximal femur, left acetabulum, skull and ribs bilaterally. There is increased uptake posteriorly within the spine at the cervical thoracic junction which may also indicate metastatic disease. Faint bilateral renal activity and bladder activity noted. Increased uptake in the lower cervical spine most likely degenerative in nature though metastatic disease not excluded. IMPRESSION Abnormal whole-body bone scan demonstrating multiple foci of increased uptake within the axial and appendicular skeleton compatible with widely disseminated skeletal metastases. This is most prominent within the calvarium, ribs and proximal femurs bilaterally. Dictated by.Malika Borden M.D. [facility] A Service of [facility] RADIOLOGY TEXT RESULTS PATIENT: SUMMER HARRISON JR LOCATION: [facility] 218-01 : 33 UNIT #: [id number] AGE: [address]: Shania Sparks MD SEX: M ORDER DR: THIS IS AN ELECTRONICALLY VERIFIED REPORT Leatha Borden M.D. at 09/23/2016 5:06 PM ЮЛИЯ/grant TD: 09/23/2016 14:37 JOB #: [id number] MEDICAL IMAGING REPORT Page 1 of 1 COPY
--- NOTE | ~2016-09-20 | CT2 ---
[facility] A Service of [facility] & [facility] RADIOLOGY TEXT RESULTS PATIENT: SUMMER HARRISON JR LOCATION: [facility] [address]-18 : 33 UNIT #: [id number] AGE: [address]: Vaibhav Trevizo MD SEX: M ORDER DR: [id number] [facility] [address] [place], [place] [address] [id number] E MR#: [id number] Acc #: [id number] NAME: SUMMER HARRISON : 1935 SEX: M STUDY DATE/TIME: 09/21/2016 02:55 UNIT: [facility] ROOM: STUDY DESCRIPTION: CT Abd and Pelv W Cont Attending Physician: Venancio Braswell M.D. Ordering Physician: Sam Nunez D.O. Primary Care Physician: Benjamin Tierney M.D. MEDICAL IMAGING REPORT This report is preliminary unless electronic signature is present EXAM CT abdomen and pelvis 09/21 02:55 INDICATIONS Upper back pain moving to the lower back with associated fever today. Patient has history of prostate cancer. TECHNIQUE Axial images were obtained through the abdomen and pelvis following IV contrast administration. Multiplanar reformats were obtained. This CT exam was performed with one or more of the following radiation dose reduction techniques: automatic control, adjustment of mA and/or kV according to patient size, and iterative reconstruction. COMPARISON Made with 09/09/2016. FINDINGS ABDOMEN: For description of findings in the lung bases, please see the chest CT report dictated separately. Patient is status post repair of an abdominal aortic aneurysm. The [place] aneurysm sac today measures 5.1 x 4.9 cm, previously 5.3 x 4.8 cm. This is not significantly changed. There is extensive atherosclerotic disease again seen. Ectasia of the common iliac arteries is not significantly changed. No periaortic fluid. There is some enhancement of the gallbladder wall with some equivocal gallbladder wall thickening. Consider gallbladder ultrasound for follow up. Bilateral renal cysts are again seen. Unopacified GI tract is remarkable for diverticula in the colon. There is no bowel obstruction. PELVIS: Atherosclerotic disease and ectasia in the common femoral artery is again noted. Patient is status post prostatectomy. There is nodular enhancement within the urinary bladder as seen on the prior study. Tumor is not excluded. The rectum is distended with stool. The lower rectum is STS. [facility] A Service of [facility] RADIOLOGY TEXT RESULTS PATIENT: SUMMER HARRISON JR LOCATION: [facility] [address]-35 : 33 UNIT #: [id number] AGE: [address]: Vaibhav Trevizo MD SEX: M ORDER DR: circumferentially thickened. Cannot exclude proctitis or even tumor at this dislocation. Correlation with physical exam findings recommended. Endoscopy may be needed. There is some fat stranding around the distended portion of the rectum as well. Scattered sclerotic lesions in the skeleton likely reflect metastatic prostate cancer. These could be better evaluated with outpatient bone scan if needed. There is an old L1 compression fracture. IMPRESSION 1. There is abnormal circumferential wall thickening in the lower rectum just above the anus. Proximal to this a large volume of stool is noted in the rectal vault. There is some fat stranding adjacent to the distended portion of the rectum as well. This may all be due to proctitis but I cannot exclude tumor in the lower rectum. Correlation with physical exam findings and potential endoscopy recommended. 2. Status post prostatectomy. Again seen is abnormal nodular enhancement in the urinary bladder which could reflect tumor. It is grossly stable in the short interval. 3. Stable appearance of the patient's aortic aneurysm. Patient is status post aneurysm repair with stent graft. This appears patent. 4. Extensive atherosclerotic disease as above. 5. Enhancement of the gallbladder wall with some potential mild thickening. Cholecystitis is not excluded and follow up with a gallbladder ultrasound is recommended. 6. Widespread osseous metastatic disease. This could be better assessed with outpatient bone scan if needed. STAT * RESULT Dictated by... Dangelo Bright Jr., M.D. THIS IS AN ELECTRONICALLY VERIFIED REPORT Dangelo Bright Jr., M.D. at 09/21/2016 5:42 AM JHONY/ciro TD: 09/21/2016 03:59 JOB #: [id number] MEDICAL IMAGING REPORT Page 1 of 1 COPY
--- NOTE | ~2016-09-20 | US84 ---
[id number] [facility]. [facility] [address] [place], [place] [address] [id number] I MR#: [id number] Acc #: [id number] NAME: SUMMER HARRISON JR : 1935 SEX: M STUDY DATE/TIME: 09/22/2016 11:51 UNIT: C2A ROOM: 218 STUDY DESCRIPTION: US LE Veins Complete Elmer Stdy Attending Physician: Shania Sparks M.D. Ordering Physician: Vaibhav Trevizo M.D. Primary Care Physician: Benjamin Tierney M.D. MEDICAL IMAGING REPORT This report is preliminary unless electronic signature is present EXAM Lower extremity bilateral venous Doppler HISTORY History of right above-knee amputation. History of PE. FINDINGS The right common femoral vein and deep femoral vein appear to be widely patent and compressible. There is phasic flow with respiration. The mid-thigh superficial femoral vein appears occluded with no color flow and hyperechoic debris, consistent with chronic thrombus. The left common femoral vein, femoral vein, popliteal vein, tibial veins demonstrate patency and compressibility. There is phasic and spontaneous flow with respiration and augmentation. Proximal and distal greater saphenous vein is patent and compressible. IMPRESSION 1. Chronic-appearing thrombus within the right mid-thigh superficial femoral vein. 2. No deep vein thrombosis of the left lower extremity. Dictated by... Guillermo Ruvalcaba M.D. THIS IS AN ELECTRONICALLY VERIFIED REPORT Guillermo Ruvalcaba M.D. at 09/24/2016 10:34 AM GIDEON/luis m TD: 09/23/2016 02:49 JOB #: [id number] MEDICAL IMAGING REPORT Page 1 of 1 COPY
--- NOTE | ~2016-09-20 | DS ---
Unit #: [id number] #: [id number] Patient: SUMMER HARRISON JR [id number] [address] [address] [id number] I MR#: [id number] NAME: SUMMER HARRISON JR ROOM: 218 Age: 81 Sex: M Admission Date: 09/21/2016 : 1935 Discharge Date: 09/23/2016 Attending Physician: Shania Sparks M.D. Primary Care Physician: Benjamin Tierney M.D. DISCHARGE SUMMARY ADDENDUM After discharge was arranged, I was contacted by family again that they would ultimately like Hospice care. I will arrange for an at-home Hospice consultation with initiation of services if family deems appropriate. I still think the patient should follow up with Dr. Parnell next week to have further discussions with him, as well. Dictated by... Shania Sparks M.D. RUBÉN/kevin TD: 09/25/2016 11:12 JOB #: [id number] DISCHARGE SUMMARY Page 1 of 1 X Shania Sparks MD DISCHARGE SUMMARY
--- NOTE | ~2016-09-20 | CR72 ---
[facility] A Service of [facility] & [facility] RADIOLOGY TEXT RESULTS PATIENT: SUMMER HARRISON JR LOCATION: [place] [address] : [birth year] UNIT #: [id number] AGE: [address]: Vaibhav Trevizo MD SEX: M ORDER DR: [id number] [facility] [address] [place], [place] [address] [id number] MR#: [id number] Acc #: [id number] NAME: SUMMER HARRISON : 1935 SEX: M STUDY DATE/TIME: 09/21/2016 01:17 [facility] ROOM: [id number] STUDY DESCRIPTION: CR Chest Single View Portable Attending Physician: Vaibhav Trevizo M.D. Ordering Physician: Sam Nunez D.O. Primary Care Physician: Benjamin Tierney M.D. MEDICAL IMAGING REPORT This report is preliminary unless electronic signature is present EXAM Portable chest 09/21/2016 at 0117 INDICATION Shortness of air, chest pain, weakness for 2-3 days. FINDINGS AP portable chest compared with 09/17/2015. Heart is enlarged. The thoracic aorta is ectatic and tortuous. This is more pronounced than on the prior PA view. This could be assessed on the upcoming CT scan. The lungs are clear. No pneumothorax. Dictated by... Dangelo Bright Jr., M.D. THIS IS AN ELECTRONICALLY VERIFIED REPORT Dangelo Bright Jr., M.D. at 09/21/2016 9:22 PM JHONY/burak TD: 09/21/2016 14:06 JOB #: [id number] MEDICAL IMAGING REPORT Page 1 of 1 COPY
--- NOTE | ~2016-09-20 | CT16 ---
[facility] A Service of [facility] & [facility] RADIOLOGY TEXT RESULTS PATIENT: SUMMER HARRISON JR LOCATION: [facility] [id number] : 33 UNIT #: [id number] AGE: [address]: Vaibhav Trevizo MD SEX: M ORDER DR: [id number] [facility] [address] [place], [place] [address] [id number] MR#: [id number] Acc #: [id number] NAME: SUMMER HARRISON : 1935 SEX: M STUDY DATE/TIME: 09/21/2016 02:55 UNIT: [facility] ROOM: STUDY DESCRIPTION: CT Angio Chest for PE Attending Physician: Venancio Braswell M.D. Ordering Physician: Sam Nunez D.O. Primary Care Physician: Benjamin Tierney M.D. MEDICAL IMAGING REPORT This report is preliminary unless electronic signature is present EXAM Chest CTA 09/21/2016 02:55 INDICATIONS Upper back pain for 1 week with fever today. History of prostate cancer. TECHNIQUE Axial images were obtained through the chest following IV contrast administration. 3-D reformats were obtained. Comparison made with 05/22/2016. This CT exam was performed with one or more of the following radiation dose reduction techniques: automatic control, adjustment of mA and/or kV according to patient size, and iterative reconstruction. FINDINGS Images through the lung bases are degraded by respiratory motion. The coronal MIP reformats show an apparent embolus in a right upper lobe pulmonary artery branch. The pulmonary circulation is otherwise clear. The aortic lumen is not opacified and is therefore not evaluated. There is extensive atherosclerotic disease and coronary artery disease. The aortic root measures about 4.3 cm. This is unchanged. Ascending aorta measures 4 cm, stable. Lower descending thoracic aorta measures about 4.3 cm which is unchanged. At this level, the prior study suggested a penetrating ulcer. This cannot be characterized on this exam due to the lack of contrast. No adenopathy is seen. There is no pleural or pericardial effusion. There is emphysema. Lungs are clear allowing for respiratory motion. For description of findings in the upper abdomen, please see the abdomen and pelvis CT report dictated separately. Osteonecrosis is likely present in the right humeral head. There are scattered sclerotic lesions in the spine and ribs which may reflect metastatic disease. This could be better assessed with outpatient bone scan if indicated. There is thoracic scoliosis. IMPRESSION [facility] A Service of [facility] & [facility] RADIOLOGY TEXT RESULTS PATIENT: SUMMER HARRISON JR LOCATION: [facility] [id number] : 33 UNIT #: [id number] AGE: [address]: Vaibhav Trevizo MD SEX: M ORDER DR: 1. The MIP reformatted images show what appears to be a single embolus in a right upper lobe pulmonary artery branch. No other pulmonary emboli are seen. 2. Extensive atherosclerotic disease with stable dilatation of the thoracic aorta as above. 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 This cannot be seen today due to the unopacified aortic lumen on this study. Diameter of the aorta at this level is stable. 3. Emphysema with no definite acute infiltrates allowing for excessive respiratory motion in the lung bases. 4. Coronary artery disease. 5. Scattered sclerotic lesion in the skeleton may reflect metastatic prostate cancer. This could be better evaluated with outpatient bone scan if indicated. ADDENDUM Findings have been discussed directly with Dr. Braswell in the emergency room at the time of this dictation. STAT * RESULT Dictated by... Dangelo Bright Jr., M.D. THIS IS AN ELECTRONICALLY VERIFIED REPORT Dangelo Bright Jr., M.D. at 09/21/2016 5:41 AM JHONY/ciro TD: 09/21/2016 03:49 JOB #: [id number] MEDICAL IMAGING REPORT Page 1 of 1 COPY
--- NOTE | ~2016-09-20 | EKG ---
PATIENT: SUMMER HARRISON UNIT #: [id number] Ventricular Rate: 95 BPM Atrial Rate: 102 BPM P-R Interval: 208 ms QRS Duration: 182 ms Q-T Interval: 450 ms QTC Calculation(Bezet): 565 ms P [place]: 79 degrees Calculated R [place]: -80 degrees Calculated T [place]: 90 degrees Diagnosis Line: Ventricular-paced rhythm Diagnosis Line: Abnormal ECG Diagnosis Line: When compared with ECG of 18-JUL-2016 12:53, Diagnosis Line: No significant change was found Diagnosis Line: Confirmed by DAMIÁN HERNANDEZ MD ([id number]) on Diagnosis Line: 09/22/2016 8:17:07 PM INTERPRETING MD: CLEOPATRA
--- NOTE | ~2016-09-20 | CO ---
Unit #: [id number] #: [id number] Patient: SUMMER HARRISON JR [id number] [place] [id number] [facility]. [place], [place] [address] [id number] MR#: [id number] NAME: SUMMER HARRISON JR ROOM: 218 Age: 81 Sex: M Admission Date: 09/21/2016 : 1935 Attending Physician: Shania Sparks M.D. Primary Care Physician: Benjamin iTerney M.D. Consultation Date: 09/22/2016 CONSULTATION REPORT REASON FOR CONSULTATION Prostate cancer. HISTORY OF PRESENT ILLNESS This pleasant 81-year-old man was admitted with complaints of back pain over the last 4 days and this is thought to represent his prostate cancer at this point. CT scan of the abdomen and pelvis yesterday describes in summary multiple bony metastases, but I am not able to specify and the DR is repeatedly failing. He did have a bone scan at [facility] in 05/22 which was negative. He is known to me through emergency operative dilation and catheter placement on 06/26/2016 after which he return to his primary urologist my associate Dr. Dangelo Parnell, who subsequently performed a TUR of prostate in June with bladder neck dilation and finding of prostate cancer. This is despite ongoing hormonal therapy. History from office record describes diagnosis of [place] 5 + 4 equals 9 prostate cancer in 04/2015. Extensively by pathology from initial TUR of prostate. Bone scan and CT scan at that time negative for metastatic disease. He was started on Eligard on 05/31/2015 and is due for this and to continue in October. He is also receiving ketoconazole 120 mg three times per week. He had been seen by Dr. Benavides [facility] and he declined clinical trial placement due to his diabetes, hypertension, peripheral vascular disease, and pacemaker. Note PSA from 11/2015 was 0.39, PSA from 05/07/2016 was 1.61. Again, the patient has low back pain, which is constant lasting now 5 days, improved on admission with analgesia. There was no radiation or associated symptoms. He continues to void without difficulty. PAST MEDICAL HISTORY Diabetes, hypertension, incontinence, BPH, prostate cancer, peripheral vascular disease, cardiac dysrhythmia. PAST SURGICAL HISTORY Four stents in legs, pacemaker, 2 TUNA procedures prior to TUR of prostate. MEDICATIONS On admission include Plavix, levothyroxine, ketoconazole, hydrocodone, calcium, vitamin D, omeprazole, vitamin B12. Unit #: [id number] #: [id number] Patient: SUMMER HARRISON ALLERGIES None known. FAMILY HISTORY Negative for prostate cancer. Father, positive for heart disease. SOCIAL HISTORY Smoker until 2011. Former alcohol use. . REVIEW OF SYSTEMS In addition to the HPI includes constipation, no shortness of air. PHYSICAL EXAMINATION GENERAL: The patient is alert, comfortable, lying in bed. Right lower extremity amputation. ABDOMEN: Soft, nontender. Low midline incisional scar. HEENT: Unremarkable. LUNGS: Seem clear. CARDIAC: Rate and rhythm regular. SKIN: [place] and warm. VITAL SIGNS: Temperature 98.3, pulse 76, blood pressure 128/78, respirations 18. PSYCHIATRIC: Normal affect and mood. Oriented x3. EXTREMITIES: No edema. NEURO: Intact. DIAGNOSTIC STUDIES LABORATORY RESULTS: Include creatinine 0.6. WBC 6.2. Alkaline phosphatase 303 and 252. Hemoglobin 12. PSAs as noted. IMAGING STUDIES: X-ray, see HPI. 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 PLAN We will check PSA and testosterone this morning as well as bone scan. May need next level of systemic therapy such as enzalutamide and if fails palliative radiotherapy. Thank you for the consultation, Vaibhav. We will follow with you. Dictated by... Dangelo Flaherty M.D. MIKE/erika TD: 09/22/2016 22:56 JOB #: [id number] Unit #: [id number] #: [id number] Patient: USMMER HARRISON Le[place] ROB CONSULTATION REPORT Page 1 of 1 X Dangelo Flaherty MD CONSULTATION REPORT
[~2016-09-20 23:01] MED LIST changes: -ASPIRIN BUFFER325 M2 PO; -CALCIUM 600 +1 EA12 PO; -ELIQUIS5 MG PO; -HYDROCODON-ACE1 EAC7 PO; -HYDROCODON-ACE1 EAC9 PO; -KETOCONAZOLE120 ML TOP; -VITAMIN B12-FO1 EACH PO
[2016-09-21 01:22] LABS: POC - CKMB 2.2 ng/mL (0.0-7.9); POC - TROPONIN <0.05 ng/mL (<=0.05)
[2016-09-21 01:52] LABS: BASOPHIL% 0.8 % (0-2.5); EOSINOPHIL# 0.1 X10e3 (0-0.7); EOSINOPHIL% 1.2 % (0.0-7.0); HEMATOCRIT 41.9 % (38.0-50.0); HEMOGLOBIN 13.5 gm/dL (13.0-16.0); LYMPHOCYTE# 1.1 X10e3 (1.0-3.5); LYMPHOCYTE% 19.1 % (17.0-45.0); MEAN CELL VOLUME 84.4 FL (83-96); MEAN CORPUSCULAR HEMOGLOBIN 27.2 PG (28-34); MEAN CORPUSCULAR HGB CONC 32.2 g/dL (30-36); MEAN PLATELET VOLUME 8.6 FL (6.5-11.5); MONOCYTE# 0.6 X10e3 (0-1.0); MONOCYTE% 10.8 % (3.0-12.0); NEUTROPHIL% 68.1 % (40-75); PLATELET COUNT 232 X10e3 (140-420); RED BLOOD COUNT 4.96 X10e (3.90-5.60); RED CELL DISTRIBUTION WIDTH 16.8 % (11.0-15.5); WHITE BLOOD COUNT 5.8 X10e3 (4.0-10.5)
[2016-09-21 01:56] LABS: DIFF IND NO
[2016-09-21 02:08] LABS: INR 1.1; PARTIAL THROMBOPLASTIN TIME 33.8 SECONDS (23.5-31.3); PROTHROMBIN TIME (PATIENT) 12.1 SECONDS (10.0-11.7)
[2016-09-21 02:19] LABS: ALBUMIN SERUM 3.1 g/dL (3.5-5.0); ALKALINE PHOSPHATASE 303 U/L (32-92); ALT (SGPT) 9 U/L (10-40); AST (SGOT) 20 U/L (10-42); BILIRUBIN,TOTAL 0.9 mg/dL (0.2-2.0); BLOOD UREA NITROGEN 28 mg/dL (9-23); BUN/CREATININE RATIO 31.11; CALCIUM SERUM 8.7 mg/dL (8.4-10.2); CARBON DIOXIDE 24 mmol/L (22-31); CHLORIDE 102 mmol/L (100-111); CREATININE SERUM 0.9 mg/dL (0.6-1.4); GLOM FILT RATE Estimated 78.7 mL/min (>60); GLUCOSE FASTING 107 mg/dL (70-110); LIPASE 16 U/L (22-51); POTASSIUM 3.7 mmol/L (3.5-5.1); PROTEIN TOTAL SERUM 6.7 g/dL (6.0-8.3); SODIUM 135 mmol/L (135-145)
[2016-09-21 02:20] LABS: BILIRUBIN, DIRECT <0.1 mg/dL (0.0-0.2); BILIRUBIN,INDIRECT 0.8 mg/dL (0.0-0.9)
[2016-09-21 02:56] LABS: URINE SOURCE CLEAN CATCH
[2016-09-21 03:00] LABS: URINE APPEARANCE CLOUDY; URINE BILIRUBIN NEG (NEG); URINE BLOOD TRACE (NEG); URINE COLOR YELLOW; URINE GLUCOSE NEG (NEG); URINE KETONE 2+ (NEG); URINE LEUKOCYTE ESTERASE 2+ (NEG); URINE NITRATE NEG (NEG); URINE PH 5.5 (5-8); URINE PROTEIN 1+ (NEG); URINE SPECIFIC GRAVITY 1.035 (1.003-1.035)
[2016-09-21 03:01] LABS: CULTURE INDICATED? YES; URINE BACTERIA AUWI 1+ (NEGATIVE); URINE SQUAMOUS EPITHELIAL CELL OCC /[HPF]; UWBCS1 AUWI 200-300 (0-5)
[2016-09-21 04:07] LABS: POC - CKMB <1.0 ng/mL (0.0-7.9); POC - TROPONIN <0.05 ng/mL (<=0.05)
[2016-09-21] MEDS ORDERED: KETOCONAZOLE120 ML TOP (04:09)
[2016-09-21] MEDS ORDERED: HYDROCODON-ACE1 EAC7 PO (04:11)
[2016-09-21] MEDS ORDERED: CALCIUM 600 +1 EA12 PO (04:12)
[2016-09-21] MEDS ORDERED: VITAMIN B12-FO1 EACH PO (04:13)
[2016-09-21] MEDS ORDERED: OMEPRAZOLE20 M2 PO (04:13)
[2016-09-22 05:35] LABS: HEMATOCRIT 38.9 % (38.0-50.0); HEMOGLOBIN 12.3 gm/dL (13.0-16.0); MEAN CELL VOLUME 84.5 FL (83-96); MEAN CORPUSCULAR HEMOGLOBIN 26.8 PG (28-34); MEAN CORPUSCULAR HGB CONC 31.7 g/dL (30-36); MEAN PLATELET VOLUME 8.3 FL (6.5-11.5); RED BLOOD COUNT 4.61 X10e (3.90-5.60); RED CELL DISTRIBUTION WIDTH 16.6 % (11.0-15.5)
[2016-09-22 06:20] LABS: ALBUMIN SERUM 2.6 g/dL (3.5-5.0); BILIRUBIN,TOTAL 0.4 mg/dL (0.2-2.0); CALCIUM SERUM 8.3 mg/dL (8.4-10.2); CREATININE SERUM 0.6 mg/dL (0.6-1.4); MAGNESIUM 1.9 mg/dL (1.6-3.0); POTASSIUM 4.2 mmol/L (3.5-5.1); PROTEIN TOTAL SERUM 5.8 g/dL (6.0-8.3)
[2016-09-22 08:24] LABS: TESTOSTERONE TOTAL 7.15 ng/dL (17-781)
[2016-09-22 08:27] LABS: PROSTATE SPECIFIC AG DIAG 65.4 ng/ml (0.0-4.0)
[2016-09-23 06:21] LABS: BUN/CREATININE RATIO 22.85; CALCIUM SERUM 8.4 mg/dL (8.4-10.2); CREATININE SERUM 0.7 mg/dL (0.6-1.4); GLOM FILT RATE Estimated 87.3 mL/min (>60)
[2016-09-23] MEDS ORDERED: HYDROCODON-ACE1 EAC9 PO (16:45)
[2016-09-23] MEDS ORDERED: ELIQUIS5 MG PO (16:47)
[2016-09-23] MEDS ORDERED: ASPIRIN BUFFER325 M2 PO (16:49)
== END 2016-09-23 17:30 | DRG 542 ==
LOC: CED 23:01 → CEDOF 09-21 04:28 → CED 09-21 04:36 → C5C 09-21 18:07 → C2A 09-22 17:07
PROVIDERS: Emergency Medicine; Internal Medicine; Urology
PROC: B32TYZZ Computerized Tomography (CT Scan) of Left Pulmonary Artery using Other Contrast (ICD-10-PCS; principal; 2016-09-21)
PROC: B32SYZZ Computerized Tomography (CT Scan) of Right Pulmonary Artery using Other Contrast (ICD-10-PCS; 2016-09-21)
DX: C79.51 Secondary malignant neoplasm of bone (principal); I26.99 Other pulmonary embolism without acute cor pulmonale; E44.0 Moderate protein-calorie malnutrition; I82.401 Acute embolism and thrombosis of unspecified deep veins of right lower extremity; N39.0 Urinary tract infection, site not specified; C61 Malignant neoplasm of prostate; Z87.891 Personal history of nicotine dependence; I10 Essential (primary) hypertension; Z95.0 Presence of cardiac pacemaker; K59.00 Constipation, unspecified; I25.10 Atherosclerotic heart disease of native coronary artery without angina pectoris; E11.51 Type 2 diabetes mellitus with diabetic peripheral angiopathy without gangrene
CPT/HCPCS: 36415; 71010; 71275; 74177; 77080; 78306; 80048; 80053; 80076; 81003; 82553; 82947; 83690; 83735; 84153; 84403; 84484; 85025; 85027; 85610; 85730; 87086; 92610; 93005; 93970; 97163; 99285; A9503; G8978-GP; G8979-GP; G8980-GP; G8996-GN; G8997-GN; G8998-GN; J0696; J1650; J2270; J2405; Q9967